=== PATIENT | male | born 1955 | race Caucasian/White ===

== ENCOUNTER 2018-01-23 07:04 | Day surgery (SDC) | payer BC ==
[~2018-01-23] VITALS: Ht 170.2 cm; Wt 77.1 kg
[~2018-01-23 07:04] MED LIST: BENICAR; INDO50CA; SIMV10TA6
[2018-01-23] MEDS ORDERED: MEPERIDINE HCL/PF 100 MG/ML AMP ONE (07:46)
[2018-01-23] MEDS ORDERED: SIMETHICONE 40 MG/0.6 ML ML ONE (08:10)
[2018-01-23] MEDS: MIDAZOLAM HCL 5 MG/5 ML VIAL ONE ×4 (08:16→08:23)
[2018-01-23 13:36] VITALS: BP_SYST 91
== END 2018-01-23 10:05 | disposition home or self-care (01) ==
LOC: SDS 07:04 → SMU 07:04 → SDS 10:05
PROVIDERS: ATTEND Internal Medicine Gastroenterology
DX: Z12.11 Encounter for screening for malignant neoplasm of colon (principal); K21.9 Gastro-esophageal reflux disease without esophagitis; D12.2 Benign neoplasm of ascending colon; D12.4 Benign neoplasm of descending colon; K31.9 Disease of stomach and duodenum, unspecified; Z80.0 Family history of malignant neoplasm of digestive organs; K27.9 Peptic ulcer, site unspecified, unspecified as acute or chronic, without hemorrhage or perforation
CPT/HCPCS: 36415; 43239; 45380; 87081; 88305; 88312; 88313; J2175; J2250